=== PATIENT | female | born 1980 | race Caucasian/White ===

== ENCOUNTER 2018-09-09 18:44 | Inpatient (IN) | payer OTHER ==
[~2018-09-09] VITALS: Ht 180.3 cm; Wt 95.7 kg
[~2018-09-09 18:44] MED LIST: ACET-3017 PO; CETI10CA8 PO; IBUP800T37 PO; Ibuprofen PO; LOR5/325 PO; OMEP-218 PO; PREN-127 PO
[2018-09-09] MEDS ORDERED: MISOPROSTOL 25 MCG CAP PV PRN ×2 (20:15→22:05)
[2018-09-09] MEDS ORDERED: fentaNYL CITR 100 MCG/2 ML AMP IVP PRN (20:15)
[2018-09-09] MEDS ORDERED: LIDOCAINE 1% LOCAL 300 MG/30ML INJ PRN (20:15)
[2018-09-09 20:30] VITALS: BP 135/80; Ht 180.3 cm; Wt 95.7 kg
[2018-09-09 21:30] LABS: PLATELET COUNT, AUTOMATED 210 K/uL (150-450)
--- NOTE | 2018-09-09 22:04 | RADIOLOGY IMAGING REPORT ---
[place]AC[place] [facility] [place] NAME: Angelique Arambula : 1980 MR: [id number] V: [id number] EXAM DATE: ORDERING PHYSICIAN: JESSICA ORTEGA TECHNOLOGIST: Location: [facility] Patient: Angelique Arambula : 1980 Visit/Account:[id number] Date of Sevice: 09/09/2018 EXAMINATION: Limited transabdominal OB ultrasound HISTORY: demise. Gestational age: 31 weeks and 5 days based on an MALLIKA of 11/06/2018. LMP(c): 01/30/2018. COMPARISON: None. TECHNIQUE: Transabdominal imaging was performed for assessment of the fetus and maternal pelvic structures. T ransvaginal imaging was not performed. FINDINGS: Intrauterine gestations: One. presentation: Cephalic heart rate: Absent cardiac activity Amniotic fluid volume: BOBBY not calculated. Subjectively low amniotic fluid on provided images. Placenta: Fundal without previa. Gestational Parameters: measurements were not obtained. Anatomic Survey: Anatomic survey not performed. Abnormal appearance of the head with some overlapping of the fet al skull bones related to demise and early collapse. IMPRESSION: 1. Confirmed demise. cardiac activity is absent. 2. Cephalic positioning. Findings were discussed with JESSICA ORTEGA at 09/09/2018 9:58 PM. Report Dictated By: Danny Hillman MD at 09/09/2018 9:29 PM Report E-Signed By: Danny Hillman MD at 09/09/2018 10:01 PM WSN:[id number]
--- NOTE | 2018-09-09 22:25 | History & Physical ---
History of Present Illness Age of Patient: 37 : 3 Para or TPAL: 2 EDC per LMP: November 06, 2018 Estimated Gestational Age: 31.5 Chief Complaint demise History of Present Illness Angelique presented to the office today for routine visit with no complaints or issues or problems. We were not able to find heart tones by doppler and u/s in my office confirmed demise. There already appeared to be malformation of the head and abdomen indicated it has already been a few days. No other signs or symptoms of this tragic event. Angelique is healthy and has had an uncomplicated course with normal testing including a normal Materni-21 cell free DNA test, normal diabetes screen and normal visits with appropriate growth screening and blood pressure. She has no protein in her urine nor glucose. She did have a low lying posterior placenta on anatomical which resolved on second look at 28 weeks. Past Medical, Surgical, Family and Obstetric Histories reviewed. Please see ACOG chart. History Patient's Blood Type: B Positive Rubella Status: Immune Group B Strep Screen: Unknown Obstetrical History: uncomplicated x 2 at term Allergies: Coded Allergies: No Known Drug Allergies (Unverified , 12/16/15) Med Rec Home Meds Active Scripts Ibuprofen (IBUPROFEN) 800 Mg Tablet, 800 MG PO Q8H, #30 TAB 0 Refills Prov:JESSICA ORTEGA MD 12/17/15 Hydrocodone Bit/Acetaminophen (HYDROCODON-ACETAMINOPHEN 5-325) 1 Each Tablet, 1- 2 EACH PO Q4H PRN for PAIN, #20 TAB 0 Refills Prov:JESSICA ORTEGA MD 12/17/15 Hydrocodone Bit/Acetaminophen (HYDROCODON-ACETAMINOPHEN 5-325) 1 Each Tab, 1-2 EACH PO Q4H PRN for PAIN, #20 TAB Prov:STANTON OLIVER MD 12/31/13 [Ibuprofen] 800 MG TAB No Conflict Check, 800 MG PO Q8H, TAB Prov:STANTON OLIVER MD 12/31/13 Ibuprofen (IBUPROFEN) 800 Mg Tablet, 1 TAB PO Q8H, #30 TAB Prov:STANTON OLIVER MD 12/30/13 Acetaminophen With Codeine # 3 (TYLENOL WITH CODEINE #3 TABLET) 1 Each Tablet, 1 EACH PO Q4H PRN for PAIN, #20 TAB Prov:STANTON OLIVER MD 12/30/13 Reported Medications Omeprazole Magnesium (PRILOSEC OTC) 20 Mg Tablet.dr, 1 TAB PO QDAY, TAB 12/16/15 Cetirizine Hcl (ZYRTEC) 10 Mg Capsule, 10 MG PO QDAY, CAPSULE 12/16/15 Vits W-Ca,Fe,Fa(<1MG) ( VITAMINS) 1 Each Tablet, 1 EACH PO QDAY, TAB 12/16/15 Review of Systems All Systems Reviewed/Normal: Yes, Except as Noted Exam General Exam General Apperance: Alert/Awake/No Acute Distress Neuro: No Gross deficits Eyes: Normal Extraocular Movement & Vison Cardiovascular: Regular Rate and Rhythm Respiratory: No Respiratory Distress, Clear to Auscultation Abdomen: Soft, Non-Tender, Non-Distended Integumentary: Skin Intact without Lesions or Rash Psychological: Alert & Oriented X3, Appropriate Mood & Affect Cervical Dialation: 1 Cervical Effacement (%): 50 Station: -3 Presentation: Vertex (on u/s today) Medical Decision Making Data Points Result Diagram: 09/09/182120 VTE Prophylasis: Adult Pharmacological Contraindicati: Pt at Low Risk for VTE Mechanical Contraindications: Pt at Low Risk for VTE Assessment and Plan Problems: (1) demise > 22 weeks, delivered, current hospitalization Assessment & Plan: Discussed progression through this event and recommended using Cytotec tonight and progress to Pitocin if needed. Will start at 25 mcg and if no response, double dose in 6 hours and then repeat dosing every 4 hours doubling the dose until uterine activity has initiated and sustained. Discussed possible testing for causes if needed. She wants adequate anesthesia for this experience and will plan on epidural. Questions answered. JESSICA ORTEGA MD Sep 09, 2018 22:24
[2018-09-09] MEDS ORDERED: LR(*) 1000 ML BAG 1,000 ML IV SCH (22:39)
[2018-09-09] MEDS ORDERED: OXYTOCIN 30 UNIT/D5LR 500 ML 500 ML IV PRN (22:39)
[2018-09-09] MEDS ORDERED: LIDO/EPI 2% MPF 1:200,000 20ML EPI PRN (22:40)
[2018-09-09] MEDS ORDERED: FENTANYL/ROPIVACAINE 100 ML BAG EPI PRN (22:40)
[2018-09-09] MEDS ORDERED: BUPIVACAINE 0.5% INJ 30ML VIAL EPI PRN (22:40)
[2018-09-09] MEDS ORDERED: fentaNYL CITR 100 MCG/2 ML AMP IT PRN (22:40)
[2018-09-09] MEDS ORDERED: LIDOCAINE/PF 2% 200MG/10ML AMP 200 MG/10 ML AMPUL EPI PRN (22:40)
[2018-09-09] MEDS ORDERED: BUPIVACAINE 0.25% MPF INJ EPI PRN (22:40)
[2018-09-10] MEDS ORDERED: MISOPROSTOL 25 MCG CAP PV PRN (04:15)
[2018-09-10] MEDS ORDERED: ACETAMINOPHEN 325 MG TAB PO PRN ×2 (04:20→16:15)
[2018-09-10] MEDS ORDERED: MISOPROSTOL 100 MCG TAB PV ONE (08:00)
--- NOTE | 2018-09-10 08:41 | Labor Progress Note ---
Labor Subjective Progress Notes Subjective Received the 50 mcg dose and no significant contractions or pain yet. Hip pain reported. Labor Pain: Mild Labor Objective Vital Signs Vital Signs Date Time Temp Pulse Resp B/P (MAP) Pulse Ox O2 Delivery O2 Flow Rate FiO2 09/09/18 20:30 98.7 78 20 135/80 (98) 93 Room Air Cervical Dialation: 2 Cervical Effacement (%): 50 Cervical Consistency: Moderate Station: -2 Presentation: Vertex Other Result Diagram: 09/09/182120 Assessment and Plan Problems: (1) demise > 22 weeks, delivered, current hospitalization Assessment & Plan: Placed another Cytotec dose, this time at 100 mcg. Exp ecting contractions to increase now as she is starting to feel something. Epidural soon at her request. JESSICA ORTEGA MD Sep 10, 2018 08:41
[2018-09-10] MEDS ORDERED: OXYTOCIN 30 UNIT/D5LR 500 ML 500 ML IV PRN (12:31)
[2018-09-10] MEDS ORDERED: BUPIVACAINE 0.25% MPF INJ ONE (12:33)
[2018-09-10] MEDS ORDERED: fentaNYL CITR 100 MCG/2 ML AMP ONE (12:33)
[2018-09-10] MEDS ORDERED: ONDANSETRON 4 MG/2 ML VIAL ONE (12:33)
[2018-09-10] MEDS ORDERED: FENTANYL/ROPIVACAINE 100ML BAG 0 ML ONE (12:33)
--- NOTE | 2018-09-10 12:34 | Labor Progress Note ---
Labor Subjective Progress Notes Subjective Feeling a little more but still not terribly uncomfortable. Contractions difficult to trace but when on back for exam appears to be every 1-2 min and palpably a strong contraction during exam. Labor Objective Vital Signs Vital Signs Date Time Temp Pulse Resp B/P (MAP) Pulse Ox O2 Delivery O2 Flow Rate FiO2 09/09/18 20:30 98.7 78 20 135/80 (98) 93 Room Air Cervical Dialation: 3 Cervical Effacement (%): 75 Cervical Consistency: Soft Cervical Position: Anterior Station: -1 Presentation: Vertex Other Result Diagram: 09/09/182120 Assessment and Plan Problems: (1) demise > 22 weeks, delivered, current hospitalization Assessment & Plan: Amniotomy done with apparently clear fluid. Will place epidural now per her request and transition to Pitocin. JESSICA ORTEGA MD Sep 10, 2018 12:34
--- NOTE | 2018-09-10 14:02 | Anesthesia OB Pre-Anes Eval ---
History of Present Illness Anesthesia Start Date: Sep 10, 2018 Anesthesia Start Time: 12:59 OB Anesthesia Diagnosis: other ( demise) EDC: November 06, 2018 : 3 Para: 2 Vital Signs: Vital Signs 09/09/18 20:30 Temp 98.7 Pulse 78 Resp 20 B/P (MAP) 135/80 (98) Pulse Ox 93 O2 Delivery Room Air Pain Ratin Heart Tones: 0 Result Diagram: 09/09/182120 Height (Inches): 71.00 Weight (Pounds): 211 Past Medical History Medical History: no pertinent history Previous Anesthesia: epidural Attended Childbirth Classes?: No Hx Anesthesia Reactions: No Hx Family Anesthesia Reaction: No Current Medications: pitocin Home Meds Reported Medications Cetirizine Hcl (ZYRTEC) 10 Mg Capsule, 10 MG PO QDAY, CAPSULE 12/16/15 Vits W-Ca,Fe,Fa(<1MG) ( VITAMINS) 1 Each Tablet, 1 EACH PO QDA Y, TAB 12/16/15 Discontinued Reported Medications Omeprazole Magnesium (PRILOSEC OTC) 20 Mg Tablet.dr, 1 TAB PO QDAY, TAB 12/16/15 Discontinued Scripts Ibuprofen (IBUPROFEN) 800 Mg Tablet, 800 MG PO Q8H, #30 TAB 0 Refills Prov:JESSICA ORTEGA MD 12/17/15 Hydrocodone Bit/Acetaminophen (HYDROCODON-ACETAMINOPHEN 5-325) 1 Each Tablet, 1- 2 EACH PO Q4H PRN for PAIN, #20 TAB 0 Refills Prov:JESSICA ORTEGA MD 12/17/15 Hydrocodone Bit/Acetaminophen (HYDROCODON-ACETAMINOPHEN 5-325) 1 Each Tab, 1-2 EACH PO Q4H PRN for PAIN, #20 TAB Prov:STANTON OLIVER MD 12/31/13 [Ibuprofen] 800 MG TAB No Conflict Check, 800 MG PO Q8H, TAB Prov:STANTON OLIVER MD 12/31/13 Ibuprofen (IBUPROFEN) 800 Mg Tablet, 1 TAB PO Q8H, #30 TAB Prov:STANTON OLIVER MD 12/30/13 Acetaminophen With Codeine # 3 (TYLENOL WITH CODEINE #3 TABLET) 1 Each Tablet, 1 EACH PO Q4H PRN for PAIN, #20 TAB Prov:STANTON OLIVER MD 12/30/13 Allergies: Coded Allergies: No Known Drug Allergies (Unverified , 12/16/15) Anesthesia OB ROS Neurological: No migraines/headaches, No seizures, No neuropathy, No other ENT: Denies Tooth caps, Denies Loose teeth, Denies Chipped teeth, Denies Dentures, Denies Bridges, Denies Retainers, Denies Veneers, Denies Implants, Denies Tongue ring, Denies Other Pulmonary: No asthma, No smoker (pks/day/yrs), No other Airway Class: ll Cardiovascular ROS: No edema, No arrhythmia, No other GI ROS: clear liquids Last Solids Date: Sep 10, 2018 Last Solids Time: 11:00 ROS: No Herpes, No STD(s), No Liver Disease, No Renal Disease, No Other Endocrine ROS: No diabetes, No gestational diabetes, No thyroid disorder, No other Musculoskeletal ROS: No low back pain, No low back injury, No scoliosis, No other ASA Classification: 2 Assessment and Plan Anesthesia Plan: CSE Anesthesia Stop Day: Sep 10, 2018 Anesthesia Stop Time: 13:30 YONATHAN JADE CRNA Sep 10, 2018 14:02
--- NOTE | 2018-09-10 14:09 | Procedure Note ---
Anesthetic Placement Note Anesthesia Plan: CSE Permit for Anesthesia Signed: Yes Anesthesia Technique: Patient Sitting Anesthesia Prep: Chlorhexidine Interspace: L 3-4 Local Anesthetic: 1% Lidocaine Amount Local - cc's: 3 Anesthesia Needle: 17g Touhy/Schliff Anesthesia Attempts: 1 Loss of Resistance: Normal Saline Depth of SONAL (cm): 5 Epidural Needle Placement: No CSF, No Blood, No Parasthesia Intrathecal Needle: 27 Gauge Pencan Cerebral Spinal Fluid: Yes, Clear Catheter Insertion (cm): 4 (9cm@skin) Catheter Type: Olivares - Spring Wound Epidural Dressing: Tegaderm, Tape Anesthesia Tray: Lot Number ([id number]), Expiration Date (02/22), Reference Number ([id number]) Anesthesia Medications: Intrathecal Dose: mcg Fentanyl (10), mg Marcaine MPF (2.5), Time (1311) Epidural Test Dose: 1.5 Lido/Epi (1:200,000), Dose - mL (3), Time (1314), Negative Epidural Loading Dose: 0.25% Marcaine (3cc), Dose - ml, Time (1316), Other (Fent 90 mcg, NS 3cc) Complications: None YONATHAN JADE CRNA Sep 10, 2018 14:09
[2018-09-10 14:16] VITALS: BP 120/58
--- NOTE | 2018-09-10 16:13 | OB Delivery Note ---
Delivery Note Vaginal Delivery Type: Spont. Vaginal Delivery Delivery Date: Sep 10, 2018 Delivery Time: 13:21 Estimated Gestational Age(wks): 32 Delivery Anesthesia: Epidural Infant Weight (gms): 1686 Notes: Induction of labor with Cytotec due to demise. Received 25 mcg last night followed by 50 mcg after 6 hours. Another 100 mcg administered at 4 hours after. Pt requested epidural and was 3 cm then and AROM was performed with clear fluid. After epidural she suddently went to complete and delivered the fetus in the bed. Fetus was showed normal gross development with no obvious abnormal features. There was skin sloughing, edema and discoloration noted and the skull bones were partially collapsed. Umbilical cord was normal with 3 vessels noted. Placenta was delivered spontaneously and intact and also appeared normal other than the time effect on the tissue. No lacerations noted. Bleeding light. Copies to: JESSICA ORTEGA MD ; JESSICA ORTEGA MD Sep 10, 2018 16:13
[2018-09-10] MEDS ORDERED: MAGNESIUM HYDROXIDE* 30ML UDCP PO PRN (16:15)
[2018-09-10] MEDS ORDERED: HYDROCORTISONE 2.5% CR 30GM TB PR PRN (16:15)
[2018-09-10] MEDS ORDERED: GLYCERIN/WITCH HAZEL LEAF 1 PK TP PRN (16:15)
[2018-09-10] MEDS ORDERED: BENZOCAINE 20% 60 ML BTL TP PRN (16:15)
[2018-09-10] MEDS ORDERED: APAP/HYDROCODONE 325/5 TAB PO PRN (16:15)
[2018-09-10] MEDS ORDERED: LANOLIN OINT 7 GM TUBE TP PRN (16:15)
[2018-09-10] MEDS ORDERED: IBUPROFEN 800 MG TAB PO SCH (17:00)
[2018-09-10 17:46] VITALS: BP 116/65
[2018-09-10 18:55] VITALS: BP 120/61
--- NOTE | 2018-09-10 20:45 | Anesthesia Post Eval Note ---
Anesthesia Post Eval Note Vital Signs 09/10/18 09/10/18 18:55 19:10 Temp 98.3 Pulse 69 Resp 16 B/P (MAP) 120/61 (80) Pulse Ox 93 O2 Delivery Room Air Pt able to participate in Eval: Yes Cardiovascular Status: Satisfactory Respiratory Status: Satisfactory Pain Managment: Satisfactory PO Nausea/Vomiting: Satisfactory Temperature Management: Satisfactory Mental Status: Satisfactory, Alert, Oriented X3 Post-Op Hydration Status: Satisfactory, Tolerating PO Well, Voiding w/o Difficulty Anesthesia Type: YONATHAN HERNDON CRNA Sep 10, 2018 20:45
[2018-09-10] MEDS ORDERED: DOCUSATE CALCIUM 240 MG CAP PO SCH (21:00)
== END 2018-09-10 20:15 | disposition home or self-care (01) | DRG 807 ==
LOC: OB 20:08
PROVIDERS: ADMIT Obstetrics & Gynecology; ATTEND Obstetrics & Gynecology
PROC: 3E0P7VZ Introduction of Hormone into Female Reproductive, Via Natural or Artificial Opening (ICD-10-PCS; 2018-09-09)
PROC: 10907ZC Drainage of Amniotic Fluid, Therapeutic from Products of Conception, Via Natural or Artificial Opening (ICD-10-PCS; 2018-09-09)
PROC: 10E0XZZ Delivery of Products of Conception, External Approach (ICD-10-PCS; principal; 2018-09-10)
DX: O36.4XX0 Maternal care for intrauterine death, not applicable or unspecified (principal); Z37.1 Single stillbirth; Z3A.31 31 weeks gestation of pregnancy
CPT/HCPCS: 36415; 76815; 85025; 86850; 86900; 86901; 87071; 87073; 88307; J2405; J2590; J3010; S0020